=== PATIENT | female | born 2005 | race Two or more races ===

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

== ENCOUNTER 2025-03-05 08:34 | Emergency (ER) | payer MEDICAID ==
[~2025-03-05] VITALS: Ht 177.8 cm; Wt 193.3 kg
--- NOTE | 2025-03-05 09:01 | ED.PDOC ---
History of Present Illness HPI Comments 19 y/o F, presents to the ED for CC of Flu-like symptoms. Patient states, she has been experiencing Flu-like symptoms including nasal congestion, difficulty breathing, and chest discomfort x3days. Patient relays, that she is currently visiting from [place] and has been unable to see her PCP d/t being out of state. Patient denies fever, chills, nausea, vomiting, or diarrhea. No other symptoms or modifying factors are present at this time. 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 S IRON WORKER History Family History Family History: Unknown Social History Smoker: Non-Smoker Alcohol: Denies ETOH Use Drugs: Denies Drug Use Lives In: Home Constitutional: denies: chills, diaphoresis, fatigue, fever, malaise, sweats, weakness, others EENTM: reports: nose congestion; denies: blurred vision, double vision, ear bleeding, ear discharge, ear drainage, ear pain, ear ringing, eye pain, eye redness, hearing loss, mouth pain, mouth swelling, nasal discharge, nose blee ding, nose pain, photophobia, tearing, throat pain, throat swelling, voice changes, others Respiratory: denies: cough, hemoptysis, orthopnea, SOB at rest, shortness of breath, SOB with excertion, stridor, wheezing, others Cardiovascular: denies: chest pain, dizzy spells, diaphoresis, Dyspnea on exertion, edema, irregular heart beat, left arm pain, lightheadedness, palpitations, PND, syncope, others Gastrointestinal: denies: abdomen distended, abdominal pain, blood streaked bowels, constipated, diarrhea, dysphagia, difficulty swallowing, hematemesis, melena, nausea, poor appetite, poor fluid intake, rectal bleeding, rectal pain, vomiting, others Genitourinary: denies: abnormal vagina bleeding, burning, dyspareunia, dysuria, flank pain, frequency, hematuria, incontinence, pain, , vagina disc harge, urgency, others Neurological: denies: dizziness, fainting, headache, left sided numbness, left sided weakness, numbness, paresthesia, pre-existing deficit, right sided numbness, right sided weakness, seizure, speech problems, tingling, tremors, weakness, others Musculoskeletal: denies: back pain, gout, joint pain, joint swelling, muscle pain, muscle stiffness, neck pain, others Integumetry: denies: bruises, change in color, change in hair/nails, dryness, laceration, lesions, lumps, rash, wounds, others Allergic/Immunocompromised: denies: Difficulty Healing, Frequent Infections, Hives, Itching, others Hematologic/Lymphatic: denies: anemia, blood clots, easy bleeding, easy bruising, swollen glands, others Endocrine: denies: excessive hunger, excessive sweating, excessive thirst, excessive urination, flushing, intolerance to cold, intolerance to heat, unexplained weight gain, unexplained weight loss, others Psychiatric: denies: anxiety, bipolar disorder, depression, hopeless, panic disorder, schizophrenia, sleepless, suicidal, others All Other Systems: Reviewed and Negative Physical Exam General Appearance: Moderate Distress, Obese HEENT: Normal ENT Inspection, Pharynx Normal, TMs Normal Neck: Full Range of Motion, Non-Tender, Normal, Normal Inspection Respiratory: Chest Non-Tender, Lungs Clear, No Accessory Muscle Use, No Respiratory Distress, Normal Breath Sounds Cardiovascular: No Edema, No JVD, No Murmur, No Gallop, Normal Peripheral Pulses, Regular Rate/Rhythm Breast Exam: Deferred Gastrointestinal: No Organomegaly, Non Tender, No Pulsatile Mass, Normal Bowel Sounds, Soft Genitalia: Deferred Pelvic: Deferred Rectal: Deferred Extremities: No calf tenderness, Normal capillary refill, Normal inspection, Normal range of motion, Non-tender, No pedal edema Musculoskeletal : Apperance: Normal 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 Was a procedure done?: No Differential Dx Considerations may include: COVID-19, INFLUENZA, URI, SINUSITIS, PHARYNGITIS X-Ray, Labs, Meds, VS Vital Signs Date Time Temp Pulse Resp B/P (MAP) Pulse Ox O2 Delivery O2 Flow Rate FiO2 03/05/25 08:35 98.4 96 18 157/[address] [address] Ph: [phone] DIAGNOSTIC IMAGING Diagnostic Imaging Report : [id number] Signed PATIENT: JESSE KAT ACCT: [id number] UNIT: [id number] : 2005 LOC: ER ROOM / BED: / AGE / SEX: 19 / F ADM STATUS: REG ER SERVICE ORDERING PHYSICIAN: ZEFERINO SALDANA MD PROCEDURE(s): CXRP - CHEST PORTABLE REASON: cough ORDER NUMBER(s): [id number], ACCESSION NUMBER(s): [id number] XY CHEST PORTABLE, HISTORY: cough COMPARISON: CXRP on DOS: 09/15/21 CXRP on DOS: 09/15/21 TECHNICAL DATA: 1 view of the chest was obtained. FINDINGS: Lines and tubes: None Cardiomediastinal silhouette: normal Pulmonary vasculature: normal Lung expansion: normal Lung airspace: normal Lung interstitium: normal Pleura: normal Pneumothorax: no Bones: Unremarkable Other: no IMPRESSION: No acute intrathoracic abnormality. ATED BY: SHAR VANEGAS MD DICTATED DATE/TIME: 03/05/25932 SIGNED BY: SHAR VANEGAS MD SIGNED DATE/TIME: 03/05/25932 CC: Patient alert. Came in because of cough. Vitals stable. Answering questions. Ambulating without difficulty. No leg swelling. No calf tenderness. No discoloration. Saturation pristine on room air. Heart rate clinically is within normal limits. Respiratory rate within normal limits. Was given prescription of amoxicillin antibiotic prednisone. Chest x-ray reviewed does not show any acute process. Explained to the patient. Was told to follow up with her primary care physician. Was told to come back if there is any problem. Time of 1ST Reevaluation: 09:30 Reevaluation 1ST: Improved Patient Education/Counseling: Diagnosis, Treatment Family Education/Counseling: No Family Present SEPSIS Sepsis Screen Date sepsis recognized/suspect: Mar 05, 2025 Time Sepsis recognized/suspect: 0836 Recent Procedure: No On Antibiotic Therapy: No Respiratory Rate >20: No Heart Rate >90: Yes Temp<36 C (96.8 F) or >38.3 C: No SBP <90 or MAP <65 mmHG: No New Acute Mental Status Change: No Is the patient on CPAP, BIPAP,: No Physician Orders Chest Portable (03/05/25 08:58) Vital Signs Date Time Temp Pulse Resp B/P (MAP) Pulse Ox O2 Delivery O2 Flow Rate FiO2 03/05/25 08:35 98.4 96 18 157/85 98 98.4 Departure 1 Departure Time of Disposition: :15 Impression: Primary Impression: Pneumonitis Disposition: HOME / SELF CARE / HOMELESS Condition: Good e-Prescriptions Prednisone (Prednisone) 10 Mg Tab 10 MG PO DAILY for 7 Days, #7 MG Prov: ZEFERINO SALDANA MD 03/05/25 Amoxicillin Trihydrate (Amoxicillin) 500 Mg Tab 1 TAB PO TID, #30 TAB Prov: ZEFERINO SALDANA MD 03/05/25 Discharged With: Self Critical Care Note Critical Care Time?: No Stability Stability form required: No Heart Score Heart Score: Heart Score Response (Comments) Value History N/A 0 EKG N/A 0 Age N/A 0 Risk Factors N/A 0 Troponin N/A 0 Total 0 I personally scribed for ZEFERINO SALDANA MD ([email or web address]) on 03/05/25 at 09:01. Electronically submitted by Marce Schmidt ([email or web address]). I personally scribed for ZEFERINO SALDANA MD ([email or web address]) on 03/05/25 at 09:51. Electronically submitted by Marce Schmidt ([email or web address]). ZEFERINO SALDANA MD Mar 05, 2025 09:01
--- NOTE | 2025-03-05 09:36 | DVH ---
XY CHEST PORTABLE, HISTORY: cough COMPARISON: CXRP on DOS: 09/15/21 CXRP on DOS: 09/15/21 TECHNICAL DATA: 1 view of the chest was obtained. FINDINGS: Lines and tubes: None Cardiomediastinal silhouette: normal Pulmonary vasculature: normal Lung expansion: normal Lung airspace: normal Lung interstitium: normal Pleura: normal Pneumothorax: no Bones: Unremarkable Other: no IMPRESSION: No acute intrathoracic abnormality.
[2025-03-05] MEDS ORDERED: PRED10TA PO (10:16)
[2025-03-05] MEDS ORDERED: AMOX500T3 PO (10:16)
[2025-03-05 10:30] VITALS: BP 119/80; PULSE 84; RESP 18; TEMP 98.4; O2SAT 96
== END 2025-03-05 10:34 | disposition home or self-care (01) ==
LOC: ER 08:34
DX: J98.4 Other disorders of lung (principal)
CPT/HCPCS: 71045